=== PATIENT | male | born 1965 | race Caucasian/White ===

== ENCOUNTER 2016-12-27 21:23 | Observation (INO) | payer OTHER ==
[2016-12-27] MEDS ORDERED: ADENOSINE 6 MG/2 ML VIAL IVPUSH ONE ×3 (21:49→22:06)
--- NOTE | 2016-12-27 21:55 | PDOC ---
Attending Attestation - Resident Resident Name: Maggie Blood - ED Attending Attestation I have performed the following: I have examined & evaluated the patient, The case was reviewed & discussed with the resident, I agree w/resident's findings & plan - HPI HPI: 12/27/16 21:59 The patient is a 51 year old male, with a significant past medical history of myocardial infarction in 2014, hyperlipidemia, who presents to the emergency department with, irregular heartbeat and lightheadedness since 8pm. The patient reports the heart palpitations began at rest without exertion. Patient states no recent changes in exercise. The patient reports associated symptoms of shortness of breath and diaphoresis secondary to the irregular heartbeat. Patient states he had similar symptoms approx. one week ago. He denies any recent fevers, chills, headache He denies any recent nausea, vomit, diarrhea or constipation. He denies any recent dysuria, frequency, urgency or hematuria. Allergies: NKA Past surgical history: None reported. Social History: He reports alcohol use. Denies tobacco or recreational drug use. Primary Care Physician: Dr. Sylvester Sultana - Physicial Exam PE: 12/27/16 22:05 GENERAL: Awake, alert, and fully oriented, in no acute distress HEAD: No signs of trauma EYES: PERRLA, EOMI, sclera anicteric, conjunctiva clear ENT: Auricles normal inspection, hearing grossly normal, nares patent, oropharynx clear without exudates. Moist mucosa NECK: Normal ROM, supple, no lymphadenopathy, JVD, or masses LUNGS: Breath sounds equal, clear to auscultation bilaterally. No wheezes, and no crackles HEART: +Irregularly Regular Heartbeat. +Tachycardia. Normal S1 and S2, no murmurs, rubs or gallops ABDOMEN: Soft, nontender, normoactive bowel sounds. No guarding, no rebound. No masses EXTREMITIES: Normal range of motion, no edema. No clubbing or cyanosis. No cords, erythema, or tenderness NEUROLOGICAL: Cranial nerves II through XII grossly intact. Normal speech, normal gait SKIN: +Diaphoresis. Warm, normal turgor, no rashes or lesions noted. - Critical Care Time Total Critical Care Time: 35 Critical Care Statement: The care of this patient involved high complexity decision making to prevent further life threatening deterioration of the patient 's condition and/or to evaluate & treat vital organ system(s) failure or risk of failure. <William Persaud - Last Filed: 12/28/16 01:19> - Resident Resident Name: JeremiMaggie - ED Attending Attestation I have performed the following: I have examined & evaluated the patient, The case was reviewed & discussed with the resident, I agree w/resident's findings & plan, Exceptions are as noted - Medical Decision Making Pt with prior history of CAD presents with SVT. He broke with second dose of adenosine (initially given 6 mg with no response, then responded to 12 mg). However, was still mildly tachycardic afterwards with heart rate in low 100s. He was given cardizem with good effect. Case d/w Dr. Sultana. In light of his prior cardiac history, will place on tele obs. As per Dr. Sultana, will place consult for Dr. 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 <Maren Sanabria - Last Filed: 12/28/16 02:21> - Medical Decision Making 12/27/16 23:28 Dr. Sultana was called at his office at 11:28. Awaiting call back. <Flora Kaufman - Last Filed: 12/28/16 02:25>
[2016-12-27] MEDS ORDERED: dilTIAZem HCL 125 MG/25 ML - 25 ML VIAL ONE (22:04)
[2016-12-27] MEDS ORDERED: dilTIAZem HCL 50 MG/10 ML - 10 ML VIAL IVPUSH ONE (22:05)
[2016-12-27 22:16] LABS: BASOPHIL 1.1 % (0-2.0); EOSINOPHIL 3.7 % (0-4.5); MCH 29.7 pg (25.7-33.7); MCHC 33.3 g/dl (32.0-35.9); MEAN CELL VOLUME 89.3 fl (80-96); MEAN PLT VOLUME 8.9 fl (7.5-11.1); NEUTROPHILS 51.3 % (42.8-82.8); PLATELET COUNT 236 K/MM3 (134-434); RDW 14.2 % (11.9-15.9); WHITE BLOOD COUNT 11.5 K/mm3 (4.0-10.0)
[2016-12-27 22:41] LABS: ALBUMIN 3.8 g/dl (3.4-5.0); ALK PHOS 78 U/L (45-117); ANION GAP 6 (8-16); BILIRUBIN,TOTAL 0.3 mg/dL (0.2-1.0); CALCIUM 9.4 mg/dL (8.5-10.1); CO2 30 mmol/L (21-32); CREATININE 1.2 mg/dL (0.7-1.3); GLUCOSE,RANDOM 90 mg/dL (74-106); SGPT/ALT 40 U/L (12-78); TOT PROT 7.3 g/dl (6.4-8.2)
[2016-12-27 22:43] LABS: TROPONIN I < 0.02 ng/ml (0.00-0.05)
[2016-12-27 22:44] LABS: CPK 181 IU/L (39-308); SGOT/AST 28 U/L (15-37)
--- NOTE | 2016-12-27 23:23 | PDOC ---
History of Present Illness <Maren Sanabria - Last Filed: 12/27/16 23:36> - General History Source: Patient, Spouse Exam Limitations: No Limitations - History of Present Illness Initial Comments: This is a 51 yo male with long-standing history of rapid heart rate, CAD (DC 5 years ago and was admitted here to [facility] but no stents placed, on 81 mg ASA), HLD , and GERD who presents c/o rapid heart rate since about 8pm. He notes an initial mild headache after the onset of rapid heart rate, but this has since resolved. He has had mild sweats and mild shortness of breath since the onset, but no chest pain, back pain, abdominal pain, vision changes, numbness, tingling , weakness, or other symptoms. He states that this feels exactly the same as his prior episodes of rapid heart beat which he has had since his teenage years. He has not seen a doctor during one of these episodes before. He took a baby ASA about 30 minutes after the onset of symptoms tonight. <BloodMaggie - Last Filed: 12/27/16 23:49> - General Chief Complaint: Irregular Heart Beat Stated Complaint: Irregular Heart Beat Time Seen by Provider: 12/27/16 21:44 Past History <Maren Sanabria - Last Filed: 12/27/16 23:36> - Past Medical History Cardiac Disorders: Yes (DC 2011) GI Disorders: Yes (ACID REFLUX) Hypercholesterolemia: Yes - Psycho/Social/Smoking Cessation Hx Anxiety: No Suicidal Ideation: No Smoking History: Never smoked Have you smoked in the past 12 months: No Information on smoking cessation initiated: No Hx Alcohol Use: No Drug/Substance Use Hx: No Substance Use Type: None <Maggie Blood - Last Filed: 12/27/16 23:49> - Past Medical History Allergies/Adverse Reactions: Allergies Allergy/AdvReac Type Severity Reaction Status Date / Time No Known Allergies Allergy Verified 12/27/16 21:31 Home Medications: Ambulatory Orders Omeprazole Magnesium [Prilosec (OTC)] 20 mg PO DAILY 09/30/13 Aspirin [ASA -] 1 tab PO DAILY 12/27/16 Review of Systems - Review of Systems Constitutional: Yes: Other (sweats). No: Chills, Fever, Unexplained wgt Loss HEENTM: No: Nose Congestion, Throat Pain Respiratory: No: Cough, Shortness of Breath Cardiac (ROS): Yes: Palpitations. No: Chest Pain ABD/GI: No: Constipated, Diarrhea, Nausea, Vomiting : No: Burning, Dysuria Musculoskeletal: No: Back Pain, Neck Pain Integumentary: No: Bruising, Rash Neurological: Yes: Headache (mild). No: Numbness, Tingling, Weakness, Dizziness Endocrine: No: Unexplained Weight Gain, Unexplained Weight Loss <Maggie Blood - Last Filed: 12/27/16 23:49> *Physical Exam - Vital Signs Last Vital Signs Temp Pulse Resp BP Pulse Ox 97.5 F L 82 16 109/76 100 12/27/16 21:32 12/27/16 22:59 12/27/16 22:59 12/27/16 22:59 12/27/16 22:59 <Maren Sanabria - Last Filed: 12/27/16 23:36> - Vital Signs Last Vital Signs Temp Pulse Resp BP Pulse Ox 97.5 F L 82 16 109/76 100 12/27/16 21:32 12/27/16 22:59 12/27/16 22:59 12/27/16 22:59 12/27/16 22:59 <Maggie Blood - Last Filed: 12/27/16 23:49> ED Treatment Course - LABORATORY CBC & Chemistry Diagram: 12/27/16 21:50 12/27/16 21:50 - ADDITIONAL ORDERS Additional order review: Laboratory Results 12/27/16 21:50 Sodium 142 Potassium 5.0 D Chloride 106 Carbon Dioxide 30 Anion Gap 6 L BUN 25 H D Creatinine 1.2 D Creat Clearance w eGFR > 60 Random Glucose 90 Calcium 9.4 Total Bilirubin 0.3 D AST 28 D ALT 40 D Alkaline Phosphatase 78 Creatine Kinase 181 Creatine Kinase Index 2.4 CK-MB (CK-2) 4.364 H Troponin I < 0.02 Total Protein 7.3 Albumin 3.8 12/27/16 21:50 RBC 5.62 H MCV 89.3 MCHC 33.3 RDW 14.2 MPV 8.9 Neutrophils % 51.3 D Lymphocytes % 34.6 D Monocytes % 9.3 Eosinophils % 3.7 D Basophils % 1.1 - RADIOLOGY Radiology Studies Ordered: Category Date Time Status CHEST X-RAY PORTABLE* [RAD] Stat Radiology 12/27/16 22:06 Ordered - Medications Given in the ED: ED Medications Discontinued Medications Generic Name Dose Route Start Last Admin Trade Name Michelle PRN Reason Stop Dose Admin Adenosine 6 mg 12/27/16 22:06 12/27/16 21:58 Adenocard - IVPUSH 12/27/16 22:07 6 mg ONCE ONE Administration Adenosine 12 mg 12/27/16 22:06 12/27/16 22:00 Adenocard - IVPUSH 12/27/16 22:07 12 mg ONCE ONE Administration Diltiazem HCl 10 mg 12/27/16 22:05 12/27/16 22:05 Cardizem Injection - IVPUSH 12/27/16 22:06 10 mg ONCE ONE Administration <Maren Sanabria - Last Filed: 12/27/16 23:36> - LABORATORY CBC & Chemistry Diagram: 12/27/16 21:50 12/27/16 21:50 - ADDITIONAL ORDERS Additional order review: Laboratory Results 12/27/16 21:50 Sodium 142 Potassium 5.0 D Chloride 106 Carbon Dioxide 30 Anion Gap 6 L BUN 25 H D Creatinine 1.2 D Creat Clearance w eGFR > 60 Random Glucose 90 Calcium 9.4 Total Bilirubin 0.3 D AST 28 D ALT 40 D Alkaline Phosphatase 78 Creatine Kinase 181 Creatine Kinase Index 2.4 CK-MB (CK-2) 4.364 H Troponin I < 0.02 Total Protein 7.3 Albumin 3.8 12/27/16 21:50 RBC 5.62 H MCV 89.3 MCHC 33.3 RDW 14.2 MPV 8.9 Neutrophils % 51.3 D Lymphocytes % 34.6 D Monocytes % 9.3 Eosinophils % 3.7 D Basophils % 1.1 - Medications Given in the ED: ED Medications Discontinued Medications Generic Name Dose Route Start Last Admin Trade Name Freq PRN Reason Stop Dose Admin Adenosine 6 mg 12/27/16 22:06 12/27/16 21:58 Adenocard - IVPUSH 12/27/16 22:07 6 mg ONCE ONE Administration Adenosine 12 mg 12/27/16 22:06 12/27/16 22:00 Adenocard - IVPUSH 12/27/16 22:07 12 mg ONCE ONE Administration Diltiazem HCl 10 mg 12/27/16 22:05 12/27/16 22:05 Cardizem Injection - IVPUSH 12/27/16 22:06 10 mg ONCE ONE Administration <Maggie Blood - Last Filed: 12/27/16 23:49> *DC/Admit/Observation/Transfer - Discharge Dispostion Admit: Yes <Maren Sanabria - Last Filed: 12/27/16 23:36> - Attestations Physician Attestion: 12/27/16 23:49 I, Dr. Maggie Blood, attest that this document has been prepared under my direction and personally reviewed by me in its entirety. I further attest, that it accurately reflects all work, treatment, procedures and medical decision -making performed by me. <Maggie Blood - Last Filed: 12/27/16 23:49> Diagnosis at time of Disposition: SVT (supraventricular tachycardia) - Discharge Dispostion Condition at time of disposition: Stable - Referrals Referrals: Sylvester Sultana MD [Primary Care Provider] -
[2016-12-27] MEDS ORDERED: ASPIRIN 81 MG CHEWABLE TABLETS PO ONE (23:36)
[2016-12-28] MEDS ORDERED: ASPIRIN 81 MG CHEWABLE TABLETS ONE (00:02)
[2016-12-28 01:36] VITALS: BMI 31.1
[2016-12-28] MEDS ORDERED: ACETAMINOPHEN 325 MG TABLET (FP) PO PRN (01:36)
[2016-12-28 07:48] LABS: ALBUMIN 3.4 g/dl (3.4-5.0); ANION GAP 8 (8-16); BILIRUBIN,TOTAL 0.3 mg/dL (0.2-1.0); CALCIUM 8.4 mg/dL (8.5-10.1); CO2 25 mmol/L (21-32); CREATININE 0.9 mg/dL (0.7-1.3); GLUCOSE,RANDOM 99 mg/dL (74-106); SGOT/AST 16 U/L (15-37); SGPT/ALT 34 U/L (12-78); TOT PROT 6.5 g/dl (6.4-8.2)
[2016-12-28 07:56] LABS: MCH 30.3 pg (25.7-33.7); MCHC 34.1 g/dl (32.0-35.9); MEAN CELL VOLUME 88.9 fl (80-96); MEAN PLT VOLUME 8.5 fl (7.5-11.1); PLATELET COUNT 200 K/MM3 (134-434); RDW 13.9 % (11.9-15.9); WHITE BLOOD COUNT 8.2 K/mm3 (4.0-10.0)
[2016-12-28 08:05] LABS: ALK PHOS 67 U/L (45-117); CPK 107 IU/L (39-308); FREE T4 1.08 ng/dl (0.76-1.16); THYROID STIMULATING HORMONE 1.51 uIU/ml (0.358-3.74)
[2016-12-28 08:24] LABS: TROPONIN I 0.56 ng/ml (0.00-0.05)
[2016-12-28] MEDS: PANTOPRAZOLE 20 MG TABLET (FP) PO SCH (10:03)
[2016-12-28] MEDS: ASPIRIN 81 MG CHEWABLE TABLETS PO SCH (10:04)
--- NOTE | 2016-12-28 10:15 | HP ---
Admitting History and Physical - Admission Chief Complaint: felt palpitations 3 days. no cp. nosob History of Present Illness: h/o mi in past strong fhx History Source: Patient Limitations to Obtaining History: No Limitations - Smoking History Smoking history: Never smoked Have you smoked in the past 12 months: No - Alcohol/Substance Use Hx Alcohol Use: Yes (has a drink about 1/month) Home Medications - Allergies Allergies/Adverse Reactions: Allergies Allergy/AdvReac Type Severity Reaction Status Date / Time No Known Allergies Allergy Verified 12/27/16 21:31 - Home Medications Home Medications: Ambulatory Orders Omeprazole Magnesium [Prilosec (OTC)] 20 mg PO DAILY 09/30/13 Aspirin [ASA -] 1 tab PO DAILY 12/27/16 Family Disease History - Family Disease History Family History: Unremarkable Review of Systems - Review of Systems Constitutional: reports: No Symptoms Eyes: reports: No Symptoms HENT: reports: No Symptoms Neck: reports: No Symptoms Cardiovascular: reports: No Symptoms, Palpitations Respiratory: reports: No Symptoms Gastrointestinal: reports: No Symptoms, Vomiting Blood Breasts: reports: No Symptoms Reported Musculoskeletal: reports: No Symptoms Integumentary: reports: No Symptoms Neurological: reports: No Symptoms Endocrine: reports: No Symptoms Hematology/Lymphatic: reports: No Symptoms Psychiatric: reports: No Symptoms Physical Examination Vital Signs: Vital Signs Temperature 98.4 F 12/28/16 08:48 Pulse Rate 67 12/28/16 08:48 Respiratory Rate 16 12/28/16 08:48 Blood Pressure 119/71 12/28/16 08:48 O2 Sat by Pulse Oximetry (%) 96 12/28/16 08:39 Constitutional: Yes: Well Nourished Eyes: Yes: WNL HENT: Yes: WNL Neck: Yes: WNL Cardiovascular: Yes: Regular Rate and Rhythm Respiratory: Yes: WNL Gastrointestinal: Yes: WNL ...Rectal Exam: Yes: Deferred Renal/: Yes: WNL, Urethral Discharge Musculoskeletal: Yes: WNL Extremities: Yes: WNL Edema: No Peripheral Pulses WNL: Yes Integumentary: Yes: WNL Wound/Incision: Yes: Excoriated ...Motor Strength: WNL Psychiatric: Yes: WNL Assessment/Plan card appretiated streesvtest in ? am eps and card cath warented regardless of results as per dr garcia
--- NOTE | 2016-12-28 12:15 | CONS ---
DATE OF CONSULTATION: 12/28/2016 TIME OF CONSULTATION: 9:30 a.m. REQUESTING PHYSICIAN: Sylvester Sultana MD CHIEF COMPLAINT: Lightheadedness, headache, diaphoresis, and palpitations. HISTORY: The patient is a 51-year-old white gentleman with a history of palpitations since his teenage years and also gives history of a myocardial infarction in 2013. He came to the hospital because of sudden onset of lightheadedness and diaphoresis. Symptoms started at home. He waited for an hour and at the insistence of his was brought to the emergency room and was found to be in a supraventricular tachycardia with rates over 170 beats per minute and was terminated with adenosine. On questioning, the patient denies having chest, back, jaw pain or discomfort associated with palpitations. He states that in the past he has experienced chest pain especially in 2013 when he had myocardial infarction. There is no history of dyspnea either at rest or with exertion. No history of presyncope or syncope. No history of paroxysmal or nocturnal dyspnea or orthopnea. History of hypercholesterolemia. The patient states his last episode of palpitations was a few weeks ago. The patient has shown poor compliance and has not been followed by his physician for nearly 2 years. There is no history of diabetes mellitus, heart murmur, rheumatic fever as a child. He is currently on no medications except for aspirin. PAST MEDICAL HISTORY: As mentioned in the history of present illness. PAST SURGICAL HISTORY: Denies any surgeries. SOCIAL HISTORY: He is . He is employed. Has 3 biological daughters and a stepson. Used to smoke 1 to 1-1/2 packs of cigarettes per day starting at the age of 13 and stopped smoking around the age of 46. Has a social drink. Denies drug use. Has 2-3 cups of coffee per day. Denies drinking elfego. FAMILY HISTORY: He does not know his father. Mother at age 63. Had coronary artery disease, congestive heart failure, diabetes, hypertension, chronic obstructive pulmonary disease, and of congestive heart failure. Has one brother who has coronary artery disease and apparently has had multiple stents. MEDICATIONS: Prior to admission, the patient was on the following medications: 1. Aspirin 81 mg p.o. daily. 2. Prilosec 20 mg p.o. daily. REVIEW OF SYSTEMS: Constitutional: No history of chills, fever, or night sweats. No history of unintentional weight loss. HEENT: History of headaches as mentioned above. No history of diplopia. Occasional transient blurring of vision. No history of epistaxis, hoarseness, tinnitus, or deafness reported. Cardiovascular: See history of present illness. Respiratory: History of intermittent morning cough without expectoration. No history of hemoptysis. No history of tuberculosis. Gastrointestinal: No history of nausea, vomiting, melena, or hematemesis. History of gastroesophageal reflux disease. No history of abdominal pain or discomfort. No history of change in bowel habits. Neurologic: No history of seizures or syncope. Hospital lightheadedness. No history of focal weakness. Endocrine: No history of polyuria or polydipsia. No history of intolerance to cold or warm weather. Musculoskeletal: History of occasional arthralgias involving the knees. No history of myalgias. Gastrointestinal: No history of dysuria, frequency, or hematuria. Hematological: No history of ecchymosis, anemia, or bleeding. Lymphatics: No history of lymphadenopathy. PHYSICAL EXAMINATION: General: A 51-year-old gentleman who was in no acute distress. No pallor, cyanosis, clubbing, or jaundice. Vital Signs: Blood pressure 119/71 mmHg, pulse 67 beats per minute and regular. Patient is afebrile. Weight is not recorded. Oxygen saturation 96%. Neck: Supple. No jugular venous distention. Carotids are equal, and upstrokes are normal. No bruits are heard, and no thyromegaly is present. Heart: PMI is in the 5th intercostal space. No heaves or thrills. S1, S2 are normal. Nonejection systolic click is heard at the apex. ? S4 gallop at the apex. No murmurs were heard. Lungs: Clear on auscultation. Chest: Normal AP diameter. Expansion is symmetrical. Abdomen: Obese. Soft and nontender. No hepatosplenomegaly or palpable masses are felt. Bowel sounds are present. No bruits are heard. Extremities: No calf tenderness or dependent edema. Pulses are equal. ECG of December 27 at 2137 supraventricular tachycardia at [address] and T abnormalities involving the inferior and lateral leads. The patient converted to sinus rhythm following parenteral administration of diltiazem and Adenocard. Post conversion ECG reveals normal sinus rhythm. ST segments are isoelectric in leads 2, 3, aVF, and V6. LABORATORY DATA: Troponin on admission was less than 0.02. Follow up troponin at 6 a.m. was 0.56. Chemistry on December 28, 2016: Sodium 141, potassium 4.2, chloride 108, CO2 is 25, BUN 25, creatinine 0.9 mg/dL. Random glucose 99 mg/dL. Normal liver function tests. TSH was 1.51. Free T4 was 1.08. CBC December 28, 2016: WBC count 8200, hemoglobin 15.6 g, platelet count 200,000. X-ray chest on December 27, 2016. Impression: No evidence of active pulmonary disease. IMPRESSION: 1. Palpitations and diaphoresis secondary to paroxysmal supraventricular tachycardia (starting in his teenage years). 2. History of coronary artery disease (status post myocardial infarction 2013). 3. Elevated troponin secondary to demand injury. 4. Poor compliance. 5. History of hypercholesterolemia. 6. Gastroesophageal reflux disease. RECOMMENDATIONS: 1. Serial EKG and enzymes. 2. Bedside echocardiogram. 3. Myoview stress test once troponins have stabilized. 4. T3, T4, TSH. 5. Further suggestions will depend upon the above-mentioned tests. 6. Risk modification. 7. The patient should be considered for both electrophysiological studies and radiofrequency ablation. PROGNOSIS: Guarded. Thank you for your referral. Yours sincerely, GEORGIA POLANCO M.D. [id number]
[2016-12-28 15:20] LABS: TROPONIN I 0.31 ng/ml (0.00-0.05)
--- NOTE | 2016-12-29 11:02 | PN ---
Progress Note, Physician Chief Complaint: currently doing stree test no cp - Current Medication List Current Medications: Active Medications Acetaminophen (Tylenol -) 650 mg PO Q4H PRN PRN Reason: FEVER OR PAIN Aspirin (Asa -) 81 mg PO DAILY [facility] Last Admin: 12/28/16 10:04 Dose: 81 mg Pantoprazole Sodium (Protonix -) 20 mg PO DAILY [facility] Last Admin: 12/28/16 10:03 Dose: 20 mg - Objective Vital Signs: Vital Signs Temperature 97.9 F 12/29/16 08:34 Pulse Rate 62 12/29/16 08:34 Respiratory Rate 18 12/29/16 08:34 Blood Pressure 153/84 12/29/16 08:34 O2 Sat by Pulse Oximetry (%) 96 12/28/16 21:00 Constitutional: Yes: Well Nourished Eyes: Yes: WNL HENT: Yes: WNL Neck: Yes: WNL Cardiovascular: Yes: WNL, Regular Rate and Rhythm Respiratory: Yes: WNL Gastrointestinal: Yes: WNL ...Rectal Exam: Yes: WNL Genitourinary: Yes: WNL Breast(s): Yes: WNL Musculoskeletal: Yes: WNL Extremities: Yes: WNL Edema: No Integumentary: Yes: WNL Neurological: Yes: WNL, Unresponsive Psychiatric: Yes: WNL Assessment/Plan if stress test nl card cath out pt if pos transfer [facility] card cath appt w tx fri 1200 noon asa daily
[2016-12-29] MEDS: PANTOPRAZOLE 20 MG TABLET (FP) PO SCH (12:51)
[2016-12-29] MEDS: ASPIRIN 81 MG CHEWABLE TABLETS PO SCH (12:51)
[2016-12-29 17:50] VITALS: BP 161/97; PULSE 65; TEMP 98
--- NOTE | 2016-12-29 18:36 | PN ---
Progress Note (short form) - Note Progress Note: 51 year old male admitted with palptations, lightheadedness and chest pain and found to be SVT terminated with Adenosine.Patient has had persistant elevation of BP.No further chest pain or discomfort or palpitations. He underwent a myoview stress test which did not reveal a reversable perfusion defect.(detail report to follow). Active Medications Acetaminophen (Tylenol -) 650 mg PO Q4H PRN PRN Reason: FEVER OR PAIN Aspirin (Asa -) 81 mg PO DAILY [facility] Last Admin: 12/29/16 12:51 Dose: 81 mg Metoprolol Succinate (Toprol Xl -) 25 mg PO DAILY [facility] Pantoprazole Sodium (Protonix -) 20 mg PO DAILY [facility] Last Admin: 12/29/16 12:51 Dose: 20 mg O: Vital Signs - 8 hr 12/29/16 12/29/16 14:03 17:48 Temperature 97.5 F L 98 F Pulse Rate 75 65 Respiratory 18 20 Rate Blood Pressure 169/97 161/97 NECK:: No JVD, carotids are equal,no bruits. HEART: PMI in the 5th ICSS,no murmur or gallops. LUNGS: Clear. ABDOMEN: Soft, nontender,no organomegaly. EXTREMITIES: no calf tenderness,no dependent edema. CBC, BMP 12/28/16 06:00 12/28/16 06:00 A: 1. PSVT. 2. Chest pain secondary to demand ischemia. 3. Hypertension. 4. Poor compliance. 5. Obesity. Recommendatios: 1. Antihypertensive therapy starting today would advise Toprol XL starting at 25mg.daily and titrate dose. 2. Evaluation by EPS for RFA PALLAVI. 3. Risk modifications. 4. Need to consider coronary angiogram in view of strong family history. 5. Continue ASA 81mg, 6. Close F/U of BP.
[2016-12-29] MEDS ORDERED: METOPROLOL SUCCINATE 25 MG TAB.SR.24H (FP) PO ONE (19:00)
[2016-12-30] MEDS ORDERED: METOPROLOL SUCCINATE 25 MG TAB.SR.24H (FP) PO SCH (10:00)
--- NOTE | 2016-12-30 16:50 | EKG ---
Test Reason : Blood Pressure : / mmHG Vent. Rate : 174 BPM Atrial Rate : 036 BPM P-R Int : 000 ms QRS Dur : 088 ms QT Int : 266 ms P-R-T Axes : 000 053 -35 degrees QTc Int : 452 ms SUPRAVENTRICULAR TACHYCARDIA ABNORMAL ECG WHEN COMPARED WITH ECG OF 07-JUL-2015 12:49, VENT. RATE HAS INCREASED BY [address] NOW DEPRESSED IN ANTERIOR LEADS Confirmed by GEORGIA POLANCO MD ([id number]) on 12/30/2016 4:49:41 PM Referred By: Confirmed By:GEORGIA POLANCO MD
--- NOTE | 2016-12-30 16:50 | EKG ---
Test Reason : Blood Pressure : / mmHG Vent. Rate : 094 BPM Atrial Rate : 094 BPM P-R Int : 138 ms QRS Dur : 092 ms QT Int : 350 ms P-R-T Axes : 041 027 -03 degrees QTc Int : 437 ms NORMAL SINUS RHYTHM NONSPECIFIC ST ABNORMALITY ABNORMAL ECG WHEN COMPARED WITH ECG OF 07-JUL-2015 12:49, QT HAS LENGTHENED Confirmed by GEORGIA POLANCO MD ([id number]) on 12/30/2016 4:49:52 PM Referred By: EF Confirmed By:GEORGIA POLANCO MD
== END 2016-12-29 19:26 | disposition home or self-care (01) ==
LOC: JER 21:23 → JERBED 23:37 → UNDOADMOB 23:37 → JERBED 12-28 01:02 → J4S 12-28 01:02 → INTOOBSV 12-28 07:37 → OBSVTOIN 12-28 07:37 → J4S 12-28 14:15
PROVIDERS: ADMIT Family Medicine; ATTEND Family Medicine
PROC: 3E033GC Introduction of Other Therapeutic Substance into Peripheral Vein, Percutaneous Approach (ICD-10-PCS; principal; 2016-12-28)
DX: I47.1 Supraventricular tachycardia (principal); I25.2 Old myocardial infarction; E78.5 Hyperlipidemia, unspecified; K21.9 Gastro-esophageal reflux disease without esophagitis; Z79.82 Long term (current) use of aspirin; I10 Essential (primary) hypertension; R07.9 Chest pain, unspecified; E66.9 Obesity, unspecified; Z68.31 Body mass index [BMI] 31.0-31.9, adult
CPT/HCPCS: 36415; 71010-TC; 78452-TC; 80053; 82553; 84439; 84443; 84484; 85025; 85027; 93005; 93010; 93017; 93306-TC; 99285-25; A9502; G0378

== ENCOUNTER 2017-07-15 17:32 | Emergency (ER) | payer OTHER ==
[2017-07-15] MEDS ORDERED: ADENOSINE 6 MG/2 ML VIAL IVPUSH ONE ×2 (17:44→18:16)
--- NOTE | 2017-07-15 17:48 | PDOC ---
Rapid Medical Evaluation Medical Evaluation: Allergies Allergy/AdvReac Type Severity Reaction Status Date / Time No Known Allergies Allergy Verified 12/27/16 21:31 07/15/17 17:45 Pt c/o: palpitation since this am Pt on brief exam: SVT 180. Pt ordered for : EKG, pt brought directly to room 9a, line and labs estblished, Dr. Hernandez at bedside Pt to proceed to the ED 07/15/17 17:48 Discharge Disposition - Diagnosis SVT (supraventricular tachycardia) - Referrals - Patient Instructions - Post Discharge Activity
[2017-07-15 18:03] LABS: EOS % 2.6 % (0-4.5); HEMATOCRIT 50.4 % (35.4-49); LYMPH % 24.8 % (8-40); MCH 30.1 pg (25.7-33.7); MCHC 33.7 g/dl (32.0-35.9); MEAN CELL VOLUME 89.3 fl (80-96); MEAN PLT VOLUME 8.5 fl (7.5-11.1); MONO % 9.2 % (3.8-10.2); NEUT % 62.4 % (42.8-82.8); PLATELET COUNT 255 K/MM3 (134-434); RBC 5.65 M/mm3 (4.00-5.60); WHITE BLOOD COUNT 12.1 K/mm3 (4.0-10.0)
--- NOTE | 2017-07-15 18:06 | PDOC ---
History of Present Illness - General Chief Complaint: Tachycardia Stated Complaint: CHEST PAIN Time Seen by Provider: 07/15/17 17:35 History Source: Patient Exam Limitations: No Limitations - History of Present Illness Initial Comments: 07/15/17 17:59 Patient is a 52M with history of HTN, HLD, SVTx2 here today complaining of chest pain and palpitations starting at 15:15 today. He endorses associated shortness of breath. Denies fevers, chills, nausea, vomiting. Denies headache. Endorses increased stress at work lately. He states that he's had this several times in the past, requiring adenosine to break the rhythm. Was evaluated by a [facility] labor economics teacher that decided not to do an ablation. Last episode in March. Past History - Past Medical History Allergies/Adverse Reactions: Allergies Allergy/AdvReac Type Severity Reaction Status Date / Time No Known Allergies Allergy Verified 07/15/17 18:10 Home Medications: Ambulatory Orders Metoprolol Succinate [Toprol Xl] 50 mg PO DAILY 07/15/17 Cardiac Disorders: Yes (AR 2012. SVT.) COPD: No GI Disorders: Yes (ACID REFLUX) Hypercholesterolemia: Yes - Suicide/Smoking/Psychosocial Hx Smoking History: Never smoked Have you smoked in the past 12 months: No Hx Alcohol Use: No Drug/Substance Use Hx: No Substance Use Type: None Hx Substance Use Treatment: No Review of Systems - Review of Systems Comments:: 07/15/17 18:02 GENERAL/CONSTITUTIONAL: No fever or chills. No weakness. CARDIOVASCULAR: Positive for chest pain and shortness of breath RESPIRATORY: No cough, wheezing, or hemoptysis. GASTROINTESTINAL: No nausea, vomiting, diarrhea or constipation. GENITOURINARY: No dysuria, frequency, or change in urination. MUSCULOSKELETAL: No joint or muscle swelling or pain. No neck or back pain. SKIN: No rash NEUROLOGIC: No headache, vertigo, loss of consciousness, or change in strength/ sensation. HEMATOLOGIC/LYMPHATIC: No anemia, easy bleeding, or history of blood clots. ALLERGIC/IMMUNOLOGIC: No hives or skin allergy. *Physical Exam - Vital Signs Last Vital Signs Temp Pulse Resp BP Pulse Ox 98.2 F 101 H 20 134/104 99 07/15/17 17:40 07/15/17 17:45 07/15/17 17:45 07/15/17 17:45 07/15/17 17:45 - Physical Exam Comments: 07/15/17 18:02 GENERAL: Awake, alert, and fully oriented, in no acute distress HEAD: No signs of trauma, normocephalic, atraumatic EYES: PERRLA, EOMI, sclera anicteric, conjunctiva clear ENT: Auricles normal inspection, hearing grossly normal, nares patent, oropharynx clear without exudates. Moist mucosa LUNGS: No distress, speaks full sentences, clear to auscultation bilaterally HEART: Tachycardic, normal S1 and S2, no murmurs, rubs or gallops, peripheral pulses normal and equal bilaterally. ABDOMEN: Soft, nontender, normoactive bowel sounds. No guarding, no rebound. No masses EXTREMITIES: Normal inspection, Normal range of motion, no edema. No clubbing or cyanosis. NEUROLOGICAL: Cranial nerves II through XII grossly intact. Normal speech, normal gait, no focal sensorimotor deficits SKIN: Warm, Dry, normal turgor, no rashes or lesions noted. ED Treatment Course - LABORATORY CBC & Chemistry Diagram: 07/15/17 18:00 07/15/17 18:00 Medical Decision Making - Critical Care Time Total Critical Care Time (minutes): 30 Critical Care Statement: The care of this patient involved high complexity decision making to prevent further life threatening deterioration of the patient 's condition and/or to evaluate & treat vital organ system(s) failure or risk of failure. - Medical Decision Making 07/15/17 18:03 Patient is a 52M with history of HTN, HLD SVTx2. HR at 200 in triage. Stable blood pressures A: Patient protecting airway B: Equal breath sounds bilaterally C: Extreme tachycardia, 18g IV placed, labs drawn, fluids started D: Moving all extremities Initial EKG showed SVT with rate of 179. Normal axis. ST depressions in lateral leads. 12mg of adenosine pushed with fluid bolus. Follow up EKG showed sinus tachycardia with rate of 114. No st elevations/ depressions. Normal axis. No st elevations/depressions. No significant t wave abnormalities. Patient reports resolution of symptoms. Will evaluate further with cbc, cmp, trop, pt/inr. 07/15/17 18:51 Laboratory Tests 07/15/17 07/15/17 18:00 18:00 WBC 12.1 H D Hgb 17.0 H Hct 50.4 H Plt Count 255 D BUN 19 H D Creatinine 1.2 D Troponin I < 0.02 D CBC shows likely hemoconcentration. Kidney function normal. Trop undetectable. Call placed to Dr Sultana. *DC/Admit/Observation/Transfer Diagnosis at time of Disposition: SVT (supraventricular tachycardia) - Discharge Dispostion Disposition: HOME Condition at time of disposition: Good Admit: No - Referrals Referrals: Alexey Sultana [Primary Care Provider] - - Patient Instructions Printed Discharge Instructions: Paroxysmal Supraventricular Tachycardia Additional Instructions: Please see Dr Sultana tomorrow in his office at noon. Please return if you have any new, worsening or concerning symptoms. You have been prescribed diltiazem to take every 6 hours. Your first dose has been given today in the ED. Your next dose is due at 1am. 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 - Post Discharge Activity
[2017-07-15 18:11] VITALS: TEMP 98.2; BMI 30.4
--- NOTE | 2017-07-15 18:11 | PDOC ---
Attending Attestation - Resident Resident Name: Veto Beltran - ED Attending Attestation I have performed the following: I have examined & evaluated the patient, The case was reviewed & discussed with the resident, I agree w/resident's findings & plan, Exceptions are as noted - HPI HPI: 07/15/17 18:05 52-year-old male with past mental history of recurrent supraventricular tachycardia, coronary artery disease presents with supraventricular tachycardia. 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 Subsequent felt some chest discomfort but denies shortness of breath. Denies recent illnesses. Patient reports that this occurs quite frequently and is under evaluation for potential ablation. - Physicial Exam PE: 07/15/17 18:06 GENERAL: Awake, alert, and fully oriented, in no acute distress. HEAD: No signs of trauma EYES: PERRLA, EOMI, sclera anicteric, conjunctiva clear ENT: Auricles normal inspection, hearing grossly normal, nares patent NECK: Normal ROM, supple, no lymphadenopathy, JVD, or masses LUNGS: Breath sounds equal, clear to auscultation bilaterally. No wheezes, and no crackles HEART: Tachycardic. Regular rate and rhythm, normal S1 and S2, no murmurs, rubs or gallops ABDOMEN: Soft, nontender, normoactive bowel sounds. No guarding, no rebound. No masses EXTREMITIES: Normal range of motion, no edema. No clubbing or cyanosis. No cords, erythema, or tenderness NEUROLOGICAL: Cranial nerves II through XII grossly intact. Normal speech, normal gait SKIN: Warm, Dry, normal turgor, no rashes or lesions noted. - Critical Care Time Total Critical Care Time: 30 Critical Care Statement: The care of this patient involved high complexity decision making to prevent further life threatening deterioration of the patient 's condition and/or to evaluate & treat vital organ system(s) failure or risk of failure. - Medical Decision Making 07/15/17 18:06 Vital Signs Temp Pulse Resp BP Pulse Ox 98.2 F 101 H 20 134/104 99 07/15/17 17:40 07/15/17 17:45 07/15/17 17:45 07/15/17 17:45 07/15/17 17:45 Patient presents as to prevent her tachycardia. Patient was placed on the monitor and seen immediately by me and the team. Patient's EKG demonstrated some supraventricular tachycardia. Patient was given initial dose of 12 mg of IV adenosine with successful breaking of the supervisor boarding tachycardia. Patient's heart rate is now sinus and normal. We'll obtain blood work including a troponin electrodes. We'll reach out out to the patient's primary care physician Dr. Sylvester Sultana for disposition. Heart Score/ECG Review #1 ECG reviewed & interpreted by me at: 17:40 07/15/17 18:12 SVT 179, no std/faisal, QTC 442 msec #2 ECG reviewed & interpreted by me at: 17:50 07/15/17 18:13 NSR 102, TWI III, no faisal/std, QTC 450 msec
[2017-07-15] MEDS ORDERED: SODIUM CHLORIDE 1,000 ML IV STA (18:14)
[2017-07-15 18:26] LABS: INR 0.93 (0.82-1.09); PROTHROMBIN TIME (PATIENT) 10.5 SEC (9.98-11.88)
[2017-07-15 18:31] LABS: ALBUMIN 3.8 g/dl (3.4-5.0); ANION GAP 10 (8-16); BLOOD UREA NITROGEN 19 mg/dL (7-18); CALCIUM 8.6 mg/dL (8.5-10.1); CHLORIDE 100 mmol/L (98-107); CO2 25 mmol/L (21-32); CREATININE 1.2 mg/dL (0.7-1.3); GLUCOSE,RANDOM 113 mg/dL (74-106); MAGNESIUM 2.2 mg/dL (1.8-2.4); POTASSIUM 4.2 mmol/L (3.5-5.1); SGOT/AST 26 U/L (15-37); SGPT/ALT 44 U/L (12-78); SODIUM 135 mmol/L (136-145)
[2017-07-15 18:36] LABS: ALK PHOS 108 U/L (45-117); BILIRUBIN,TOTAL 0.4 mg/dL (0.2-1.0); TOT PROT 7.7 g/dl (6.4-8.2)
[2017-07-15 18:42] VITALS: BP 114/69; PULSE 90
[2017-07-15] MEDS ORDERED: dilTIAZem HCL 30 MG TABLET (FP) PO ONE (19:00)
[2017-07-15] MEDS ORDERED: dilTIAZem HCL 30 MG TABLET (FP) ONE (19:03)
--- NOTE | 2017-07-16 10:04 | EKG ---
Test Reason : Blood Pressure : / mmHG Vent. Rate : 102 BPM Atrial Rate : 102 BPM P-R Int : 140 ms QRS Dur : 090 ms QT Int : 346 ms P-R-T Axes : 040 009 003 degrees QTc Int : 450 ms SINUS TACHYCARDIA NONSPECIFIC ST ABNORMALITY ABNORMAL ECG WHEN COMPARED WITH ECG OF 15-JUL-2017 17:46, NO SIGNIFICANT CHANGE WAS FOUND Confirmed by JACKI MERCHANT MD ([id number]) on 07/16/2017 10:04:38 AM Referred By: Confirmed By:JACKI MERCHANT MD
--- NOTE | 2017-07-16 10:05 | EKG ---
Test Reason : Blood Pressure : / mmHG Vent. Rate : 114 BPM Atrial Rate : 114 BPM P-R Int : 138 ms QRS Dur : 088 ms QT Int : 298 ms P-R-T Axes : 049 019 007 degrees QTc Int : 410 ms SINUS TACHYCARDIA NONSPECIFIC ST ABNORMALITY ABNORMAL ECG WHEN COMPARED WITH ECG OF 27-DEC-2016 22:05, NO SIGNIFICANT CHANGE WAS FOUND Confirmed by JACKI MERCHANT MD ([id number]) on 07/16/2017 10:05:03 AM Referred By: Confirmed By:JACKI MERCHANT MD
--- NOTE | 2017-07-18 14:26 | EKG ---
Test Reason : Blood Pressure : / mmHG Vent. Rate : 179 BPM Atrial Rate : 093 BPM P-R Int : 000 ms QRS Dur : 086 ms QT Int : 256 ms P-R-T Axes : 000 007 -31 degrees QTc Int : 442 ms SUPRAVENTRICULAR TACHYCARDIA NONSPECIFIC ST ABNORMALITY ABNORMAL ECG Confirmed by MD ZEKE, OSCAR ([id number]) on 07/18/2017 2:26:33 PM Referred By: Confirmed By:OSCAR ALANIS MD
== END 2017-07-15 19:07 | disposition home or self-care (01) ==
LOC: JER 17:32
PROC: 3E0337Z Introduction of Electrolytic and Water Balance Substance into Peripheral Vein, Percutaneous Approach (ICD-10-PCS; principal; 2017-07-15)
PROC: 3E033GC Introduction of Other Therapeutic Substance into Peripheral Vein, Percutaneous Approach (ICD-10-PCS; 2017-07-15)
DX: I47.1 Supraventricular tachycardia (principal); I25.2 Old myocardial infarction; I10 Essential (primary) hypertension; E78.00 Pure hypercholesterolemia, unspecified; K21.9 Gastro-esophageal reflux disease without esophagitis
CPT/HCPCS: 36415; 80053; 82550; 82553; 83735; 84484; 85025; 85610; 93005; 93010; 99284-25

== ENCOUNTER 2023-07-11 10:19 | Observation (INO) | payer OTHER ==
[2023-07-11] MEDS ORDERED: dilTIAZem HCL 125 MG/25 ML - 25 ML VIAL ONE (10:46)
[2023-07-11] MEDS: dilTIAZem HCL 50 MG/10 ML - 10 ML VIAL IVPUSH ONE (10:55)
[2023-07-11 11:16] LABS: INR 1.01 (0.83-1.09); PROTHROMBIN TIME (PATIENT) 11.7 SEC (9.7-13.0)
[2023-07-11 11:18] LABS: ACTIVATED PTT 33.5 SECONDS (25.2-36.5)
[2023-07-11 11:18] LABS: BASO % 0.8 % (0-2.0); EOS % 3.3 % (0-4.5); HEMATOCRIT 48.9 % (35.4-49); HEMOGLOBIN 16.8 GM/dL (11.7-16.9); LYMPH % 28.4 % (8-40); MCH 30.6 pg (25.7-33.7); MCHC 34.5 g/dl (32.0-35.9); MEAN CELL VOLUME 88.6 fl (80-96); MEAN PLT VOLUME 8.3 fl (7.5-11.1); MONO % 13.1 % (3.8-10.2); NEUT % 54.4 % (42.8-82.8); PLATELET COUNT 225 10^3/uL (134-434); RBC 5.51 M/mm3 (4.00-5.60); WHITE BLOOD COUNT 9.9 K/mm3 (4.0-10.0)
[2023-07-11 11:32] LABS: POTASSIUM 3.8 mmol/L (3.5-5.1)
[2023-07-11 11:33] LABS: ALBUMIN 3.9 g/dl (3.4-5.0); CALCIUM 9.9 mg/dL (8.5-10.1)
[2023-07-11 11:38] LABS: CREATININE 1.1 mg/dL (0.55-1.3)
[2023-07-11 11:40] LABS: BILIRUBIN,TOTAL 0.7 mg/dL (0.2-1); TOT PROT 7.7 g/dl (6.4-8.2)
[2023-07-11] MEDS: LACTATED RINGERS SOLUTION 1,000 ML IV SCH (13:50)
[2023-07-11 16:17] VITALS: BMI 35.0
[2023-07-11] MEDS: ATORVASTATIN CA 80 MG TABLET (FP) PO SCH (21:30)
[2023-07-12 07:43] LABS: BASO % 0.9 % (0-2.0); EOS % 3.5 % (0-4.5); HEMATOCRIT 49.1 % (35.4-49); HEMOGLOBIN 16.6 GM/dL (11.7-16.9); LYMPH % 23.4 % (8-40); MCH 30.3 pg (25.7-33.7); MCHC 33.9 g/dl (32.0-35.9); MEAN CELL VOLUME 89.4 fl (80-96); MEAN PLT VOLUME 8.3 fl (7.5-11.1); MONO % 9.5 % (3.8-10.2); NEUT % 62.7 % (42.8-82.8); PLATELET COUNT 211 10^3/uL (134-434); RBC 5.49 M/mm3 (4.00-5.60); WHITE BLOOD COUNT 8.4 K/mm3 (4.0-10.0)
[2023-07-12 07:44] LABS: INR 1.04 (0.83-1.09); PROTHROMBIN TIME (PATIENT) 12.1 SEC (9.7-13.0)
[2023-07-12 07:46] LABS: ACTIVATED PTT 32.1 SECONDS (25.2-36.5)
[2023-07-12 07:55] LABS: POTASSIUM 4.1 mmol/L (3.5-5.1)
[2023-07-12 08:00] LABS: ALBUMIN 3.5 g/dl (3.4-5.0); BLOOD UREA NITROGEN 26.9 mg/dL (7-18); CALCIUM 9.4 mg/dL (8.5-10.1)
[2023-07-12 08:02] LABS: MAGNESIUM 1.9 mg/dL (1.8-2.4)
[2023-07-12 08:03] LABS: CREATININE 1.1 mg/dL (0.55-1.3); PHOSPHOROUS 3.6 mg/dL (2.5-4.9)
[2023-07-12 08:04] LABS: BILIRUBIN,TOTAL 0.7 mg/dL (0.2-1)
[2023-07-12 08:06] LABS: TOT PROT 7.3 g/dl (6.4-8.2)
[2023-07-12] MEDS: APIXABAN 5 MG TABLET PO SCH (09:13)
[2023-07-12] MEDS: ASPIRIN 81 MG CHEWABLE TABLETS PO SCH (09:13)
[2023-07-12] MEDS ORDERED: metoPROLOL SUCCINATE 25 MG TAB.SR.24H (FP) PO SCH (10:37)
[2023-07-12 14:08] VITALS: BP 110/75; PULSE 65; RESP 18; TEMP 98.3
== END 2023-07-12 15:03 | disposition home or self-care (01) ==
LOC: JER 10:19 → JERBED 12:10 → J4W 16:17
PROVIDERS: ADMIT Internal Medicine; ATTEND Internal Medicine
PROC: 3E033GC Introduction of Other Therapeutic Substance into Peripheral Vein, Percutaneous Approach (ICD-10-PCS; principal; 2023-07-11)
PROC: 3E0337Z Introduction of Electrolytic and Water Balance Substance into Peripheral Vein, Percutaneous Approach (ICD-10-PCS; 2023-07-11)
DX: I48.0 Paroxysmal atrial fibrillation (principal); I25.10 Atherosclerotic heart disease of native coronary artery without angina pectoris; I11.0 Hypertensive heart disease with heart failure; Z95.1 Presence of aortocoronary bypass graft; E78.5 Hyperlipidemia, unspecified
CPT/HCPCS: 0241U-QW; 36415; 71045-TC-FY; 80053; 83735; 84100; 84436; 84443; 84479; 84484; 85025; 85610; 85730; 93005; 93010; 93306-TC; 96361; 96374; 96375; 99285-25; G0378